=== PATIENT | male | born 1990 | race Caucasian/White ===

== ENCOUNTER 2017-03-01 04:30 | Inpatient (IN) | payer MEDICAID, OTHER ==
[2017-03-01] MEDS ORDERED: Ondansetron 4 MG/2 ML SDV IVPUSH ONE (04:33)
[2017-03-01] MEDS ORDERED: MVI, Adult with Vitamin K 10 ML, Thiamine 100 MG, Folic Acid 1 MG in Sodium Chloride 0.... IV ONE ×4 (04:33)
[2017-03-01] MEDS ORDERED: Sodium Chloride 0.9% 1,000 ML IV ONE (04:33)
[2017-03-01] MEDS ORDERED: Sodium Chloride 0.9% 2.5 ML Syringe FLUSH PRN (04:33)
[2017-03-01] MEDS ORDERED: Sodium Chloride 0.9% 10 ML Syringe FLUSH PRN (04:33)
[2017-03-01] MEDS ORDERED: LORazepam 2 MG/ML SDV IVPUSH ONE (04:33)
--- NOTE | 2017-03-01 04:39 | EDM.PDOC ---
ED HPI GENERAL MEDICAL PROBLEM - General Stated Complaint: DETOX AND ANXIETY Time Seen by Provider: 03/01/17 04:31 - History of Present Illness INITIAL COMMENTS - FREE TEXT/NARRATIVE: HISTORY AND PHYSICAL: History of present illness: The patient is a 26-year-old male with no stated medical history who presents via EMS after he called to get help for detox from alcohol and alcohol abuse. According to the patient he has been drinking heavily over the last 1-2 years and it seems to have gradually escalated since he lost his job about a year ago. He denies drug use although in the past he's smoked marijuana occasionally but no other drug use and he does smoke cigarettes but has not smoked a cigarette in 2 days. He denies any history of psychiatric problems and exhibits no suicidal or homicidal ideation and says that he drinks just to get the euphoria. He stopped drinking about 24 hours ago which was when his last drink occurred. He said since that time he has had sweats shakiness and nausea and feeling like he is going through withdrawal. He called the ambulance because he says he would like help with this problem. He has no headache and denies any recent trauma and has no neck pain chest pain or shortness of breath and no abdominal pain. He told the paramedics that he felt very anxious but he has no stated history of anxiety and takes no prescription or [id number] medications. The patient states he has never done a detox program or pursued any outpatient care plans Review of systems: As per history of present illness and below otherwise all systems reviewed and negative. Past medical history: As per history of present illness and as reviewed below otherwise noncontributory. Surgical history: As per history of present illness and as reviewed below otherwise noncontributory. Social history: No reported history of drug or alcohol abuse. Family history: As per history of present illness and as reviewed below otherwise noncontributory. Physical exam: General: Well-developed well-nourished man who is nontoxic and very tremulous on my evaluation. Vital signs of been reviewed by me. His close have an odor as if they have not been washed recently HEENT: Atraumatic, normocephalic, pupils reactive, sclera are injected, negative for conjunctival pallor or scleral icterus, mucous membranes tacky, throat clear, neck supple, nontender, trachea midline. There is no scalp tenderness or midline step-offs tenderness defects of the cervical spine Lungs: Clear to auscultation, breath sounds equal bilaterally, chest nontender. Heart: S1S2, regular rhythm and tachycardic rate on my evaluation, negative for clicks, rubs, or JVD. Abdomen: Soft, nondistended, nontender. Negative for masses or hepatosplenomegaly. Negative for costovertebral tenderness. Pelvis: Stable nontender. Genitourinary: Deferred. Rectal: Deferred. Extremities: Atraumatic, negative for cords or calf pain. Neurovascular unremarkable. There is no edema and no defects or deficits appreciated Neuro: Awake, alert, oriented. Motor and sensory unremarkable throughout. Exam nonfocal. He is tremulous at rest. He moves all extremities spontaneously without defects or deficits. The patient is very jumpy overall and exhibits some component of anxiety along with the tremulousness but is cooperative with the exam. Back: There are no midline step-offs in his defects of the thoracic or lumbar spine and no soft tissue evidence of any trauma such as abrasions ecchymosis or erythema. Skin: There are no rashes or lesions overly seen then there is no diaphoresis Diagnostics: EKG CBC CMP INR amylase lipase magnesium level alcohol level UA UDS CT scan of the head chest x-ray Therapeutics: IV O2 monitor IV fluids banana bag Ativan Zofran magnesium Tylenol Please note that the initial CIWAA score was 17 and after Ativan and IV fluids it is now 5. 0550: I discussed this case with Dr. Sheikh and he accepts the patient for inpatient admission for medical detox from alcohol. He does not feel the patient needs to be in ICU as his CIWAA score has always been below 18 and is improving. Patient is willing and wants to be admitted. It is noted that the patient did spike a temp to 38.4 and I will add a chest x-ray. Dr. Sheikh does not want lactic acid blood cultures drawn and thinks that the slight temp could be related to his withdrawal. Patient overall is significantly improving since arrival here. Impression: Alcohol withdrawal with history of alcohol abuse Definitive disposition and diagnosis as appropriate pending reevaluation and review of above. - Related Data Allergies Allergy/AdvReac Type Severity Reaction Status Date / Time No Known Allergies Allergy Verified 03/01/17 04:43 Home Meds: Home Meds . [No Known Home Meds] 03/01/17 [History] ED ROS GENERAL - Review of Systems Review Of Systems: ROS reveals no pertinent complaints other than HPI. ED EXAM, GENERAL - Physical Exam Exam: See Below (See dictation) Course - Vital Signs Last Recorded V/S: Last Vital Signs Temp 38.4 C H 03/01/17 05:39 Pulse 85 03/01/17 05:39 Resp 16 03/01/17 05:39 BP 129/78 03/01/17 05:39 Pulse Ox 96 03/01/17 05:39 - Orders/Labs/Meds Orders: Active Orders 24 hr Category Date Time Status Blood Glucose Check, Bedside [RC] ONETIME Care 03/01/17 04:32 Active Cardiac Monitoring [RC] . DIRECTED Care 03/01/17 04:32 Active EKG Documentation Completion [RC] STAT Care 03/01/17 04:32 Active Oxygen Therapy, ED [RC] ASDIRECTED Care 03/01/17 04:32 Active Pulse Oximetry [RC] ASDIRECTED Care 03/01/17 04:32 Active Chest 2V [CR] Stat Exams 03/01/17 05:45 Ordered Head wo Cont [CT] Stat Exams 03/01/17 04:33 Taken Acetaminophen [Tylenol] Med 03/01/17 05:50 Once 650 mg PO NOW ONE MVI, Adult with Vitamin K [Infuvite Adult] 10 ml Med 03/01/17 04:33 Active Thiamine [Vitamin B-1] 100 mg Folic Acid 1 mg Sodium Chloride 0.9% [Normal Saline] 1,000 ml IV ONETIME Magnesium Sulfate/Water [Magnesium Sulfate 2 GM in Med 03/01/17 05:27 Active Water 50 ML] 2 gm Premix Bag 1 bag IV ONETIME Sodium Chloride 0.9% [Saline Flush] Med 03/01/17 04:33 Active 10 ml FLUSH ASDIRECTED PRN Sodium Chloride 0.9% [Saline Flush] Med 03/01/17 04:33 Active 2.5 ml FLUSH ASDIRECTED PRN Saline Lock Insert [OM.PC] Stat Oth 03/01/17 04:31 Ordered Medication Orders Multivitamins/Minerals 10 ml/Thiamine HCl 100 mg/ Folic Acid 1 mg/ Sodium Chloride 1,011.2 mls @ 175 mls/hr IV ONETIME ONE Stop: 03/01/17 10:19 Last Admin: 03/01/17 05:30 Dose: 175 mls/hr Magnesium Sulfate 2 gm/ Premix 50 mls @ 25 mls/hr IV ONETIME ONE Stop: 03/01/17 07:26 Last Admin: 03/01/17 05:35 Dose: 25 mls/hr Sodium Chloride (Saline Flush) 10 ml FLUSH ASDIRECTED PRN PRN Reason: Keep Vein Open Sodium Chloride (Saline Flush) 2.5 ml FLUSH ASDIRECTED PRN PRN Reason: Keep Vein Open Labs: Laboratory Tests 03/01/17 03/01/17 03/01/17 Range/Units 04:45 04:45 04:45 WBC 5.97 (4.0-11.0) K/uL RBC 4.50 (4.50-5.90) M/uL Hgb 14.4 (13.0-17.0) g/dL Hct 40.3 (38.0-50.0) % MCV 89.6 (80.0-98.0) fL MCH 32.0 (27.0-32.0) pg MCHC 35.7 (31.0-37.0) g/dL RDW Std Deviation 50.5 (28.0-62.0) fl RDW Coeff of Luis 15 (11.0-15.0) % Plt Count 109 L (150-400) K/uL MPV 9.50 (7.40-12.00) fL Neut % (Auto) 73.5 (48.0-80.0) % Lymph % (Auto) 14.1 L (16.0-40.0) % [place] % (Auto) 11.9 (0.0-15.0) % Eos % (Auto) 0.2 (0.0-7.0) % Baso % (Auto) 0.3 (0.0-1.5) % Neut # (Auto) 4.4 (1.4-5.7) K/uL Lymph # (Auto) 0.8 (0.6-2.4) K/uL [place] # (Auto) 0.7 (0.0-0.8) K/uL Eos # (Auto) 0.0 (0.0-0.7) K/uL Baso # (Auto) 0.0 (0.0-0.1) K/uL Nucleated RBC % 0.0 /100WBC Nucleated RBCs # 0 K/uL INR 0.99 (0.86-1.11) Sodium 136 (136-146) mmol/L Potassium 3.2 L (3.5-5.1) mmol/L Chloride 102 (98-110) mmol/L Carbon Dioxide 17 L (21-31) mmol/L BUN 13 (6.0-23.0) mg/dL Creatinine 0.9 (0.6-1.5) mg/dL Est Cr Clr Drug Dosing 127.68 mL/min Estimated GFR (MDRD) > 60.0 ml/min Glucose 278 H (60-110) mg/dL Calcium 9.5 (8.8-10.8) mg/dL Magnesium 1.2 L (1.5-2.3) mEq/L Total Bilirubin 1.1 (0.1-1.5) mg/dL AST 109 H (5-40) IU/L ALT 53 (8-54) IU/L Alkaline Phosphatase 67 (40-150) Total Protein 7.3 (6.0-8.0) g/dL Albumin 4.4 (3.5-5.0) g/dL Globulin 2.9 (2.0-3.5) g/dL Albumin/Globulin Ratio 1.5 (1.3-2.8) Amylase 71 (10-90) U/L Lipase 121 H (7-80) U/L Urine Color Urine Appearance Urine pH (5.0-8.0) Ur Specific [place] (1.001-1.035) Urine Protein (NEGATIVE) mg/dL Urine Glucose (UA) (NEGATIVE) mg/dL Urine Ketones (NEGATIVE) mg/dL Urine Occult Blood (NEGATIVE) Urine Nitrite (NEGATIVE) Urine Bilirubin (NEGATIVE) Urine Urobilinogen (<2.0) EU/dL Ur Leukocyte Esterase (NEGATIVE) Urine RBC (0-2/HPF) Urine WBC (0-5/HPF) Ur Epithelial Cells (NONE-FEW) Urine Bacteria (NEGATIVE) Urine Opiates Screen (NEGATIVE) Ur Oxycodone Screen (NEGATIVE) Urine Methadone Screen (NEGATIVE) Ur Barbiturates Screen (NEGATIVE) Ur Phencyclidine Scrn (NEGATIVE) Ur Amphetamine Screen (NEGATIVE) U Methamphetamines Scrn (NEGATIVE) U Benzodiazepines Scrn (NEGATIVE) U Cocaine Metab Screen (NEGATIVE) U Marijuana (THC) Screen (NEGATIVE) Ethyl Alcohol < 10.0 mg/dL 03/01/17 03/01/17 Range/Units 05:00 05:00 WBC (4.0-11.0) K/uL RBC (4.50-5.90) M/uL Hgb (13.0-17.0) g/dL Hct (38.0-50.0) % MCV (80.0-98.0) fL MCH (27.0-32.0) pg MCHC (31.0-37.0) g/dL RDW Std Deviation (28.0-62.0) fl RDW Coeff of Luis (11.0-15.0) % Plt Count (150-400) K/uL MPV (7.40-12.00) fL Neut % (Auto) (48.0-80.0) % Lymph % (Auto) (16.0-40.0) % [place] % (Auto) (0.0-15.0) % Eos % (Auto) (0.0-7.0) % Baso % (Auto) (0.0-1.5) % Neut # (Auto) (1.4-5.7) K/uL Lymph # (Auto) (0.6-2.4) K/uL [place] # (Auto) (0.0-0.8) K/uL Eos # (Auto) (0.0-0.7) K/uL Baso # (Auto) (0.0-0.1) K/uL Nucleated RBC % /100WBC Nucleated RBCs # K/uL INR (0.86-1.11) Sodium (136-146) mmol/L Potassium (3.5-5.1) mmol/L Chloride (98-110) mmol/L Carbon Dioxide (21-31) mmol/L BUN (6.0-23.0) mg/dL Creatinine (0.6-1.5) mg/dL Est Cr Clr Drug Dosing mL/min Estimated GFR (MDRD) ml/min Glucose (60-110) mg/dL Calcium (8.8-10.8) mg/dL Magnesium (1.5-2.3) mEq/L Total Bilirubin (0.1-1.5) mg/dL AST (5-40) IU/L ALT (8-54) IU/L Alkaline Phosphatase (40-150) Total Protein (6.0-8.0) g/dL Albumin (3.5-5.0) g/dL Globulin (2.0-3.5) g/dL Albumin/Globulin Ratio (1.3-2.8) Amylase (10-90) U/L Lipase (7-80) U/L Urine Color YELLOW Urine Appearance CLEAR Urine pH 7.5 (5.0-8.0) Ur Specific [place] 1.015 (1.001-1.035) Urine Protein TRACE (NEGATIVE) mg/dL Urine Glucose (UA) 500 H (NEGATIVE) mg/dL Urine Ketones 40 H (NEGATIVE) mg/dL Urine Occult Blood NEGATIVE (NEGATIVE) Urine Nitrite NEGATIVE (NEGATIVE) Urine Bilirubin NEGATIVE (NEGATIVE) Urine Urobilinogen 0.2 (<2.0) EU/dL Ur Leukocyte Esterase NEGATIVE (NEGATIVE) Urine RBC 0-1 (0-2/HPF) Urine WBC 0-2 (0-5/HPF) Ur Epithelial Cells RARE (NONE-FEW) Urine Bacteria FEW (NEGATIVE) Urine Opiates Screen NEGATIVE (NEGATIVE) Ur Oxycodone Screen NEGATIVE (NEGATIVE) Urine Methadone Screen NEGATIVE (NEGATIVE) Ur Barbiturates Screen NEGATIVE (NEGATIVE) Ur Phencyclidine Scrn NEGATIVE (NEGATIVE) Ur Amphetamine Screen NEGATIVE (NEGATIVE) U Methamphetamines Scrn NEGATIVE (NEGATIVE) U Benzodiazepines Scrn NEGATIVE (NEGATIVE) U Cocaine Metab Screen NEGATIVE (NEGATIVE) U Marijuana (THC) Screen NEGATIVE (NEGATIVE) Ethyl Alcohol mg/dL Meds: Medications Generic Name Dose Route Start Last Admin Trade Name Freq PRN Reason Stop Dose Admin Multivitamins/Minerals 10 ml/ 1,011.2 mls @ 175 mls/hr 03/01/17 04:33 05:30 Thiamine HCl 100 mg/ Folic IV 03/01/17 10:19 175 mls/hr Acid 1 mg/ Sodium Chloride ONETIME ONE Administration Magnesium Sulfate 2 gm/ Premix 50 mls @ 25 mls/hr 03/01/17 05:27 03/01/17 05: 35 IV 03/01/17 07:26 25 mls/hr ONETIME ONE Administration Sodium Chloride 10 ml 03/01/17 04:33 Saline Flush FLUSH ASDIRECTED PRN Keep Vein Open Sodium Chloride 2.5 ml 03/01/17 04:33 Saline Flush FLUSH ASDIRECTED PRN Keep Vein Open Discontinued Medications Generic Name Dose Route Start Last Admin Trade Name Kristine PRN Reason Stop Dose Admin Sodium Chloride 1,000 mls @ 999 mls/hr 03/01/17 04:33 03/01/17 04:46 Normal Saline IV 03/01/17 05:33 999 mls/hr STAT ONE Administration Lorazepam 1 mg 03/01/17 04:33 03/01/17 04:48 Ativan IVPUSH 03/01/17 04:34 1 mg ONETIME ONE Administration Ondansetron HCl 4 mg 03/01/17 04:33 03/01/17 04:46 Zofran IVPUSH 03/01/17 04:34 4 mg ONETIME ONE Administration Departure - Departure Time of Disposition: 05:53 Disposition: Admitted As Inpatient 66 Condition: Good Clinical Impression: Alcohol abuse Alcohol withdrawal syndrome Qualifiers: Complication of substance-induced condition: uncomplicated Qualified Code(s): F10.230 - Alcohol dependence with withdrawal, uncomplicated - Discharge Information - My Orders Last 24 Hours: My Active Orders 03/01/17 04:31 Saline Lock Insert [OM.PC] Stat 03/01/17 04:32 Blood Glucose Check, Bedside [RC] ONETIME Cardiac Monitoring [RC] . DIRECTED EKG Documentation Completion [RC] STAT Oxygen Therapy, ED [RC] ASDIRECTED Pulse Oximetry [RC] ASDIRECTED 03/01/17 04:33 Head wo Cont [CT] Stat MVI, Adult with Vitamin K [Infuvite Adult] 10 ml Thiamine [Vitamin B-1] 100 mg Folic Acid 1 mg Sodium Chloride 0.9% [Normal Saline] 1,000 ml IV ONETIME Sodium Chloride 0.9% [Saline Flush] 10 ml FLUSH ASDIRECTED PRN Sodium Chloride 0.9% [Saline Flush] 2.5 ml FLUSH ASDIRECTED PRN 03/01/17 05:27 Magnesium Sulfate/Water [Magnesium Sulfate 2 GM in Water 50 ML] 2 gm Premix Bag 1 bag IV ONETIME 03/01/17 05:45 Chest 2V [CR] Stat 03/01/17 05:50 Acetaminophen [Tylenol] 650 mg PO NOW ONE - Assessment/Plan Last 24 Hours: My Active Orders 03/01/17 04:31 Saline Lock Insert [OM.PC] Stat 03/01/17 04:32 Blood Glucose Check, Bedside [RC] ONETIME Cardiac Monitoring [RC] . DIRECTED EKG Documentation Completion [RC] STAT Oxygen Therapy, ED [RC] ASDIRECTED Pulse Oximetry [RC] ASDIRECTED 03/01/17 04:33 Head wo Cont [CT] Stat MVI, Adult with Vitamin K [Infuvite Adult] 10 ml Thiamine [Vitamin B-1] 100 mg Folic Acid 1 mg Sodium Chloride 0.9% [Normal Saline] 1,000 ml IV ONETIME Sodium Chloride 0.9% [Saline Flush] 10 ml FLUSH ASDIRECTED PRN Sodium Chloride 0.9% [Saline Flush] 2.5 ml FLUSH ASDIRECTED PRN 03/01/17 05:27 Magnesium Sulfate/Water [Magnesium Sulfate 2 GM in Water 50 ML] 2 gm Premix Bag 1 bag IV ONETIME 03/01/17 05:45 Chest 2V [CR] Stat 03/01/17 05:50 Acetaminophen [Tylenol] 650 mg PO NOW ONE
[2017-03-01 05:10] LABS: CHLORIDE,CL 102 mmol/L (98-110); SODIUM,NA 136 mmol/L (136-146)
[2017-03-01] MEDS ORDERED: Magnesium Sulfate/Water 2 GM in Premix Bag 1 BAG IV ONE (05:27)
[2017-03-01] MEDS ORDERED: Acetaminophen 325 MG Tab PO ONE (05:50)
[2017-03-01] MEDS ORDERED: Potassium Chloride 20 MEQ Tab.ER PO ONE (08:04)
[2017-03-01] MEDS: LORazepam 2 MG/ML SDV IVPUSH PRN ×2 (08:34→22:01)
[2017-03-01] MEDS: Nicotine 21 MG/24 Hr Patch TRDERM SCH (09:04)
--- NOTE | 2017-03-01 11:10 | PCM.HP ---
H&P History of Present Illness - General Date of Service: 03/01/17 Admit Problem/Dx: Admission Diagnosis/Problem Admission Diagnosis/Problem Alcohol withdrawal syndrome Source of Information: Patient History Limitations: Reports: No Limitations - History of Present Illness Initial Comments - Free Text/Narative: 26-year-old male is being admitted for alcohol withdrawal symptoms. Patient was brought in to EMS after calling them and having concerns about going through alcohol withdrawal. Patient notes that he has been drinking heavily over the past 2 years on a daily basis and states that he is "ready to quit". His alcohol use is increased secondary to losing his job last year. He is seeking symptom management for his withdrawal symptoms and also seeking treatment for alcohol abuse. His last drink was 24 hours ago. Patient has never been through detox before. He is never been to an inpatient treatment program. Patient does not take any medications and does not have a past medical history. Patient denies any suicidal or homicidal ideations. He has no psychiatric history. Patient does use tobacco and marijuana. Patient currently complains of headache , nausea, vomiting, diaphoresis and some mildly increased anxiety. ER course: Patient does have a low potassium and magnesium. AST is mildly elevated at 109. ALT and ALP are negative. Lipase is mildly elevated at 121. Head CT was negative. Chest x-ray shows mild pulmonary congestion with no infiltrate. UA shows 500 glucose. Drug screen is negative. Ethanol level is within normal limits. Initial CIWAA score was 17 with a follow-up score 5. Patient did have a temperature of 101F. Lactate and blood cultures were not obtained as this was thought to be secondary to his withdrawal symptoms. - Related Data Allergies/Adverse Reactions: Allergies Allergy/AdvReac Type Severity Reaction Status Date / Time No Known Allergies Allergy Verified 03/01/17 04:43 Home Medications: Home Meds . [No Known Home Meds] 03/01/17 [History] Past Medical History - Past Health History Medical/Surgical History: Denies Medical/Surgical History Cardiovascular History: Reports: Other (See Below) Other Cardiovascular History: frequent palpitations Respiratory History: Reports: SOB Gastrointestinal History: Reports: PUD Psychiatric History: Reports: Depression Social & Family History - Family History Family Medical History: Noncontributory - Tobacco Use Smoking Status *Q: Former Smoker Years of Tobacco use: 20 Packs/Tins Daily: 0.5 Used Tobacco, but Quit: Yes Month Tobacco Last Used: 03/02 Second Hand Smoke Exposure: No - Caffeine Use Caffeine Use: Reports: None - Alcohol Use Days Per Week of Alcohol Use: 7 Number of Drinks Per Day: 20 Total Drinks Per Week: 140 Date of Last Drink: 02/28/17 Time of Last Drink: 04:00 - Recreational Drug Use Recreational Drug Use: No Recreational Drug Type: Reports: Marijuana/Hashish Recreational Drug Last Use: "2 months ago" H&P Review of Systems - Review of Systems: Review Of Systems: See Below General: Reports: Diaphoresis HEENT: Reports: Headaches Pulmonary: Reports: No Symptoms Cardiovascular: Reports: No Symptoms Gastrointestinal: Reports: Abdominal Pain, Nausea, Vomiting Genitourinary: Reports: No Symptoms Musculoskeletal: Reports: No Symptoms Skin: Reports: No Symptoms Psychiatric: Reports: No Symptoms Neurological: Reports: No Symptoms Hematologic/Lymphatic: Reports: No Symptoms Immunologic: Reports: No Symptoms Exam - Exam Exam: See Below - Vital Signs Vital Signs: Last Vital Signs Temp 98.3 F 03/01/17 08:00 Pulse 74 03/01/17 08:00 Resp 20 03/01/17 08:00 BP 118/68 03/01/17 08:00 Pulse Ox 98 03/01/17 08:00 Weight: 159 lb 6.4 oz - Exam Quality Assessment: DVT Prophylaxis General: Alert, Oriented, Cooperative, Mild Distress HEENT: Conjunctiva Clear, Hearing Intact, Mucosa Moist & Louann, Nares Patent, Normal Nasal Septum, Posterior Pharynx Clear Neck: Supple, Trachea Midline, 2 Lungs: Clear to Auscultation, Normal Respiratory Effort Cardiovascular: Regular Rate, Regular Rhythm GI/Abdominal Exam: Normal Bowel Sounds, Soft, No Organomegaly, No Distention, No Abnormal Bruit, No Mass, Tender (Mild epigastric tenderness.) Extremities: Normal Inspection, Normal Range of Motion, Non-Tender, No Pedal Edema, Normal Capillary Refill Peripheral Pulses: 2+: Radial (L), Radial (R), Posterior Tibial (L), Posterior Tibial (R) Skin: Warm, Dry, Intact Neurological: Cranial Nerves Intact, Other (Mild tremor appreciated with outstretched hands.) Neuro Extensive - Mental Status: Alert, Oriented x3, Normal Mood/Affect, Normal Cognition Neuro Extensive - Motor, Sensory, Reflexes: CN II-XII Intact Psychiatric: Alert, Normal Affect, Normal Mood, Withdrawal Symptoms. No: Suicidal Ideation, Homicidal Ideation, Hallucinations - Patient Data Result Diagrams: 03/01/17 04:45 03/01/17 04:45 *Q Meaningful Use (ADM) - VTE *Q VTE Criteria *Q: - Stroke *Q Stroke Criteria *Q: - AMI *Q AMI Criteria *Q: - Problem List (1) Alcohol abuse SNOMED Code(s): 58710346 ICD Code: F10.10 - ALCOHOL ABUSE, UNCOMPLICATED Status: Acute Current Visit: Yes (2) Alcohol withdrawal syndrome SNOMED Code(s): 848575605 ICD Code: F10.239 - ALCOHOL DEPENDENCE WITH WITHDRAWAL, UNSPECIFIED Status : Acute Current Visit: Yes Qualifiers: Complication of substance-induced condition: uncomplicated Qualified Code(s ): F10.230 - Alcohol dependence with withdrawal, uncomplicated Problem List Initiated/Reviewed/Updated: Yes Orders Last 24hrs: Active Orders 24 hr Category Date Time Status CIWAA Assessment [RC] Q4H Care 03/01/17 07:01 Active Regular Diet [DIET] Diet 03/01/17 Lunch Active Abdomen Ltd [US] Routine Exams 03/01/17 08:46 Ordered LIPASE [CHEM] Routine Lab 03/02/17 05:00 Ordered Folic Acid Med 03/02/17 09:00 Active 1 mg PO DAILY LORazepam [Ativan] Med 03/01/17 07:02 Active See Protocol IVPUSH Q4H PRN Nicotine [Habitrol] Med 03/01/17 09:00 Active 21 mg TRDERM DAILY Thiamine [Vitamin B-1] Med 03/02/17 09:00 Active 100 mg PO DAILY Medication Orders Folic Acid (Folic Acid) 1 mg PO DAILY AMADOR Lorazepam (Ativan) 0 mg IVPUSH Q4H PRN; Protocol PRN Reason: Withdrawal Symptoms Last Admin: 03/01/17 08:34 Dose: 1 mg Nicotine (Habitrol) 21 mg TRDERM DAILY AMADOR Last Admin: 03/01/17 09:04 Dose: 21 mg Sodium Chloride (Saline Flush) 10 ml FLUSH ASDIRECTED PRN PRN Reason: Keep Vein Open Sodium Chloride (Saline Flush) 2.5 ml FLUSH ASDIRECTED PRN PRN Reason: Keep Vein Open Thiamine HCl (Vitamin B-1) 100 mg PO DAILY AMADOR Assessment/Plan Comment:: 26-year-old male admitted with alcohol abuse and alcohol withdrawal symptoms #1. Alcohol abuse with withdrawal symptoms: -CIWAA protocol with Ativan as needed for withdrawal symptoms. -Patient started on thiamine and folate. -Magnesium and potassium replaced. -Will give patient resources available to him for outpatient alcohol abuse treatment. #2. Elevated AST: -Is most likely elevated secondary to alcohol abuse. -Right upper quadrant ultrasound is pending. #3. Elevated lipase: -Lipase is mildly elevated at 121. If patient becomes nauseous and has increased vomiting throughout the day, we will make him nothing by mouth. -Most likely chronic pancreatitis. DVT prophylaxis: Lovenox, SCDs. Disposition: 2 to 4 days pending improvement.
[2017-03-01] MEDS ORDERED: Albuterol/Ipratropium 3.0-0.5 MG/3 ML Neb Soln NEB PRN (11:16)
[2017-03-01] MEDS ORDERED: Ondansetron 4 MG/2 ML SDV IVPUSH PRN (11:16)
[2017-03-01] MEDS ORDERED: Acetaminophen 325 MG Tab PO PRN (11:16)
--- NOTE | 2017-03-01 13:10 | CT ---
EXAM DATE: 03/01/17 PATIENT'S AGE: 26 Patient: HENRRY YEE Facility: [place], [place] Site . Site : 1990 Study: CT Head [id number]/16/2017 5:24:34 AM Ordering Physician: Kiet Andrews Final Report: INDICATION: Alcohol withdrawal. TECHNIQUE: CT head without i.v. contrast. COMPARISON: None FINDINGS: CSF spaces: Within normal limits for age. Brain parenchyma: The brain parenchyma is normal in appearance with preservation of the herrera-white differentiation. No sign of mass, hemorrhage, or midline shift seen. Skull base and calvarium: The visualized paranasal sinuses are well aerated. The mastoid air cells are clear. The visualized orbits are grossly unremarkable. No skull fractures are seen. IMPRESSION: 1. No evidence of acute infarction, intracranial hemorrhage, or mass effect seen. Dictated by Kei Damon MD @ 03/01/2017 5:42:11 AM Dictated by: Kei Damon MD @ 03/01/2017 05:42:16 (Electronic Signature) Report Signed by Proxy. [facility]
--- NOTE | 2017-03-01 13:11 | CR ---
EXAM DATE: 03/01/17 PATIENT'S AGE: 26 Patient: HENRRY YEE Facility: [place], [place] Site . Site : 1990 Study: XRay Chest [id number]/16/2017 6:09:22 AM Ordering Physician: Kiet Andrews Final Report: INDICATION: Alcoholic withdrawal. Technique: PA and lateral chest x-ray. Findings: Mild pulmonary venous congestion. Heart size normal. Lungs clear without infiltrate. Chest otherwise negative. Dictated by Michael Collins MD @ Mar 01 2017 6:17AM (Electronic Signature) Report Signed by Proxy. [facility]
[2017-03-01] MEDS: Phosphorus #1 250 MG Tab PO SCH ×3 (13:34→23:46)
--- NOTE | 2017-03-01 16:20 | US ---
EXAMINATION: Right upper quadrant ultrasound HISTORY: Elevated AST COMPARISON: None TECHNIQUE: Grayscale, color Doppler, and spectral Doppler images obtained transabdominally. FINDINGS: The visualized pancreas appears normal. The liver is mildly increased in generalized echote xture with focal fatty sparing near the gallbladder fossa. The gallbladder wall thickness is normal. No pericholecystic fluid or shadowing gallstones. The common bile duct measures 3 mm. The right kidne y measures at least 11.5 cm [id number] without evidence of hydronephrosis. Sonographic Madrid sign is not reported. IMPRESSION: 1. Mild fatty infiltration of the liver.
[2017-03-02 05:12] LABS: CHLORIDE,CL 107 mmol/L (98-110); SODIUM,NA 141 mmol/L (136-146)
[2017-03-02] MEDS: Phosphorus #1 250 MG Tab PO SCH ×4 (05:51→23:00)
[2017-03-02] MEDS: Thiamine 100 MG Tab PO SCH (08:31)
[2017-03-02] MEDS: Nicotine 21 MG/24 Hr Patch TRDERM SCH (08:31)
[2017-03-02] MEDS: Folic Acid 1 MG Tab PO SCH (08:31)
[2017-03-02] MEDS: Enoxaparin 40 MG/0.4 ML Syringe SUBCUT SCH (08:32)
[2017-03-02] MEDS ORDERED: Metoprolol Tartrate 5 MG/5 ML SDV IVPUSH PRN (10:09)
--- NOTE | 2017-03-02 10:49 | PCM.PN ---
- General Info Date of Service: 03/02/17 Admission Dx/Problem (Free Text): Admission Diagnosis/Problem Admission Diagnosis/Problem Alcohol withdrawal syndrome Subjective Update: Patient doing well this morning. He is tolerating oral intake and voiding appropriately. He notes a slight tremor of his hands and his arms are outstretched. He also notes that he continues to have diaphoresis. Has mild abdominal pain but again, is tolerating oral intake. Required 2 mg of Ativan yesterday secondary to elevated CIWAA scores. - Review of Systems General: Reports: No Symptoms HEENT: Reports: No Symptoms Pulmonary: Reports: No Symptoms Cardiovascular: Reports: No Symptoms Gastrointestinal: Reports: Abdominal Pain Genitourinary: Reports: No Symptoms Musculoskeletal: Reports: No Symptoms Skin: Reports: Diaphoresis Neurological: Reports: Tremors (Mild tremor of hands with arms outstretched.) Psychiatric: Reports: No Symptoms - Patient Data Vitals - Most Recent: Last Vital Signs Temp 97.4 F 03/02/17 07:49 Pulse 87 03/02/17 07:49 Resp 20 03/02/17 07:49 BP 118/78 03/02/17 07:49 Pulse Ox 98 03/02/17 07:49 Weight - Most Recent: 159 lb 6.4 oz I&O - Last 24 Hours: Intake & Output 03/01/17 03/02/17 03/02/17 22:59 06:59 14:59 Intake Total 640 1740 Output Total 1400 1600 Balance -760 140 Lab Results Last 24 Hours: Laboratory Results - last 24 hr 03/02/17 03/02/17 03/02/17 Range/Units 04:40 04:40 04:40 WBC 4.96 (4.0-11.0) K/uL RBC 4.49 L (4.50-5.90) M/uL Hgb 14.4 (13.0-17.0) g/dL Hct 41.8 (38.0-50.0) % MCV 93.1 (80.0-98.0) fL MCH 32.1 H (27.0-32.0) pg MCHC 34.4 (31.0-37.0) g/dL RDW Std Deviation 53.9 (28.0-62.0) fl RDW Coeff of Luis 16 H (11.0-15.0) % Plt Count 101 L (150-400) K/uL MPV 10.30 (7.40-12.00) fL Neut % (Auto) 72.4 (48.0-80.0) % Lymph % (Auto) 21.8 (16.0-40.0) % [place] % (Auto) 3.4 (0.0-15.0) % Eos % (Auto) 2.2 (0.0-7.0) % Baso % (Auto) 0.2 (0.0-1.5) % Neut # (Auto) 3.6 (1.4-5.7) K/uL Lymph # (Auto) 1.1 (0.6-2.4) K/uL [place] # (Auto) 0.2 (0.0-0.8) K/uL Eos # (Auto) 0.1 (0.0-0.7) K/uL Baso # (Auto) 0.0 (0.0-0.1) K/uL Nucleated RBC % 0.0 /100WBC Nucleated RBCs # 0 K/uL Sodium 141 (136-146) mmol/L Potassium 4.1 (3.5-5.1) mmol/L Chloride 107 (98-110) mmol/L Carbon Dioxide 25 (21-31) mmol/L BUN 12 (6.0-23.0) mg/dL Creatinine 0.8 (0.6-1.5) mg/dL Est Cr Clr Drug Dosing 143.10 mL/min Estimated GFR (MDRD) > 60.0 ml/min Glucose 81 (60-110) mg/dL Calcium 9.2 (8.8-10.8) mg/dL Phosphorus 4.4 (2.4-4.7) mg/dL Magnesium 2.0 (1.5-2.3) mEq/L Total Bilirubin 1.0 (0.1-1.5) mg/dL AST 1661 H (5-40) IU/L ALT 405 H (8-54) IU/L Alkaline Phosphatase 64 (40-150) Total Protein 7.3 (6.0-8.0) g/dL Albumin 4.6 (3.5-5.0) g/dL Globulin 2.7 (2.0-3.5) g/dL Albumin/Globulin Ratio 1.7 (1.3-2.8) Lipase 157 H (7-80) U/L Med Orders - Current: Current Medications Acetaminophen (Tylenol) 650 mg PO Q4H PRN PRN Reason: Pain (Mild 1-3)/fever Albuterol/Ipratropium (Duoneb 3.0-0.5 Mg/3 Ml) 3 ml NEB Q4HRRT PRN PRN Reason: Shortness Of Breath/wheezing Enoxaparin Sodium (Lovenox) 40 mg SUBCUT DAILY [facility] Last Admin: 03/02/17 08:32 Dose: 40 mg Folic Acid (Folic Acid) 1 mg PO DAILY [facility] Last Admin: 03/02/17 08:31 Dose: 1 mg Lorazepam (Ativan) 0 mg IVPUSH Q4H PRN; Protocol PRN Reason: Withdrawal Symptoms Last Admin: 03/01/17 22:01 Dose: 1 mg Metoprolol Tartrate (Lopressor) 5 mg IVPUSH Q6H PRN PRN Reason: SBP>170 or DBP >110 Nicotine (Habitrol) 21 mg TRDERM DAILY [facility] Last Admin: 03/02/17 08:31 Dose: 21 mg Ondansetron HCl (Zofran) 4 mg IVPUSH Q4H PRN PRN Reason: Nausea Last Admin: 03/01/17 22:06 Dose: 4 mg Sodium Chloride (Saline Flush) 10 ml FLUSH ASDIRECTED PRN PRN Reason: Keep Vein Open Sodium Chloride (Saline Flush) 2.5 ml FLUSH ASDIRECTED PRN PRN Reason: Keep Vein Open Sodium Phosphate (Neutra-Phos) 250 mg PO QID [facility] Last Admin: 03/02/17 05:51 Dose: 250 mg Thiamine HCl (Vitamin B-1) 100 mg PO DAILY [facility] Last Admin: 03/02/17 08:31 Dose: 100 mg Discontinued Medications Acetaminophen (Tylenol) 650 mg PO NOW ONE Stop: 03/01/17 05:51 Last Admin: 03/01/17 06:08 Dose: 650 mg Multivitamins/Minerals 10 ml/Thiamine HCl 100 mg/ Folic Acid 1 mg/ Sodium Chloride 1,011.2 mls @ 175 mls/hr IV ONETIME ONE Stop: 03/01/17 10:19 Last Admin: 03/01/17 05:30 Dose: 175 mls/hr Sodium Chloride (Normal Saline) 1,000 mls @ 999 mls/hr IV STAT ONE Stop: 03/01/17 05:33 Last Admin: 03/01/17 04:46 Dose: 999 mls/hr Magnesium Sulfate 2 gm/ Premix 50 mls @ 25 mls/hr IV ONETIME ONE Stop: 03/01/17 07:26 Last Admin: 03/01/17 05:35 Dose: 25 mls/hr Lorazepam (Ativan) 1 mg IVPUSH ONETIME ONE Stop: 03/01/17 04:34 Last Admin: 03/01/17 04:48 Dose: 1 mg Ondansetron HCl (Zofran) 4 mg IVPUSH ONETIME ONE Stop: 03/01/17 04:34 Last Admin: 03/01/17 04:46 Dose: 4 mg Potassium Chloride (Klor-Con M20) 40 meq PO ONETIME ONE Stop: 03/01/17 08:05 Last Admin: 03/01/17 08:26 Dose: 40 meq - Exam Quality Assessment: DVT Prophylaxis (SCDs, Lovenox.) General: Alert, Oriented, Cooperative, No Acute Distress HEENT: Mucous Membr. Moist/[place] Neck: Supple Lungs: Clear to Auscultation, Normal Respiratory Effort Cardiovascular: Regular Rate, Regular Rhythm GI/Abdominal Exam: Normal Bowel Sounds, Soft, No Organomegaly, No Distention, No Abnormal Bruit, No Mass, Tender (Mild tenderness with palpation in the right upper and left upper quadrants.) Extremities: Normal Inspection, Normal Range of Motion, Non-Tender, No Pedal Edema, Normal Capillary Refill Peripheral Pulses: 2+: Radial (L), Radial (R), Posterior Tibial (L), Posterior Tibial (R) Skin: Warm, Dry, Intact Neurological: No New Focal Deficit Psy/Mental Status: Alert, Normal Affect, Normal Mood Physical Findings Comments:: Patient is diaphoretic. - Problem List & Annotations (1) Alcohol abuse SNOMED Code(s): 99176095 Code(s): F10.10 - ALCOHOL ABUSE, UNCOMPLICATED Status: Acute Current Visit: Yes (2) Alcohol withdrawal syndrome SNOMED Code(s): 460050359 Code(s): F10.239 - ALCOHOL DEPENDENCE WITH WITHDRAWAL, UNSPECIFIED Status: Acute Current Visit: Yes Qualifiers: Complication of substance-induced condition: uncomplicated Qualified Code(s ): F10.230 - Alcohol dependence with withdrawal, uncomplicated - Problem List Review Problem List Initiated/Reviewed/Updated: Yes - My Orders Last 24 Hours: My Active Orders 03/01/17 11:16 Height and Weight [RC] DAILY Intake and Output [RC] Q12H Notify Provider Vital Signs [RC] ASDIRECTED Oxygen Therapy [RC] PRN Pulse Oximetry [RC] PRN Up With Assistance [RC] ASDIRECTED Vital Signs [RC] Q4H Acetaminophen [Tylenol] 650 mg PO Q4H PRN Albuterol/Ipratropium [DuoNeb 3.0-0.5 MG/3 ML] 3 ml NEB Q4HRRT PRN Ondansetron [Zofran] 4 mg IVPUSH Q4H PRN Resuscitation Status Routine 03/01/17 11:17 Sequential Compression Device [OM.PC] Per Unit Routine 03/01/17 11:18 RT Aerosol Therapy [RC] ASDIRECTED 03/01/17 12:00 Phosphorus #1 [Neutra-Phos] 250 mg PO QID 03/02/17 09:00 Enoxaparin [Lovenox] 40 mg SUBCUT DAILY 03/03/17 05:11 CBC WITH AUTO DIFF [HEME] AM COMPREHENSIVE METABOLIC PN,CMP [CHEM] AM MAGNESIUM [CHEM] AM PHOSPHORUS [CHEM] AM - Plan Plan:: 26-year-old male admitted with alcohol abuse and alcohol withdrawal symptoms #1. Alcohol abuse with withdrawal symptoms: -Continue CIWAA protocol with Ativan as needed for withdrawal symptoms. -Continue thiamine and folate. -Magnesium and potassium have returned within normal limits. -Patient has been given information about resources available to him once discharged for help with his alcohol abuse. #2. Elevated AST: -AST has increased to 1600. Was previously 109. ALT is also elevated to 405. Was previously 53. Can consider HIDA scan as outpatient. -Right upper quadrant ultrasound shows fatty infiltration of the liver. #3. Elevated lipase: -Most likely chronic pancreatitis. Lipase is elevated to 157. Was previously 121. -Patient tolerating oral intake without any nausea or vomiting. #4. Hypertension: -Patient's blood pressure this morning is 161/96. As needed metoprolol IV has been started if patient's systolic pressures greater than 170 or diastolic is greater than 110. DVT prophylaxis: Lovenox, SCDs. Disposition: potential discharge tomorrow
[2017-03-03] MEDS: Phosphorus #1 250 MG Tab PO SCH (06:02)
[2017-03-03 06:31] LABS: CHLORIDE,CL 109 mmol/L (98-110); SODIUM,NA 141 mmol/L (136-146)
[2017-03-03] MEDS: Nicotine 21 MG/24 Hr Patch TRDERM SCH (08:00)
[2017-03-03] MEDS: Folic Acid 1 MG Tab PO SCH (08:00)
[2017-03-03] MEDS: Thiamine 100 MG Tab PO SCH (08:00)
[2017-03-03] MEDS: Enoxaparin 40 MG/0.4 ML Syringe SUBCUT SCH (08:00)
--- NOTE | 2017-03-03 09:00 | PCM.PN ---
- Review of Systems Systems Review Comment:: feeling better, does not feel shakey - Patient Data Vitals - Most Recent: Last Vital Signs Temp 36.1 C 03/03/17 07:41 Pulse 92 03/03/17 07:41 Resp 20 03/03/17 07:41 BP 118/85 03/03/17 07:41 Pulse Ox 99 03/03/17 07:41 Weight - Most Recent: 72.439 kg I&O - Last 24 Hours: Intake & Output 03/02/17 03/03/17 03/03/17 22:59 06:59 14:59 Intake Total 1740 950 Output Total 900 400 Balance 840 550 Lab Results Last 24 Hours: Laboratory Results - last 24 hr 03/03/17 03/03/17 Range/Units 05:58 05:58 WBC 4.46 (4.0-11.0) K/uL RBC 4.73 (4.50-5.90) M/uL Hgb 15.1 (13.0-17.0) g/dL Hct 44.2 (38.0-50.0) % MCV 93.4 (80.0-98.0) fL MCH 31.9 (27.0-32.0) pg MCHC 34.2 (31.0-37.0) g/dL RDW Std Deviation 53.3 (28.0-62.0) fl RDW Coeff of Luis 16 H (11.0-15.0) % Plt Count 118 L (150-400) K/uL MPV 10.10 (7.40-12.00) fL Neut % (Auto) 53.6 (48.0-80.0) % Lymph % (Auto) 29.8 (16.0-40.0) % [place] % (Auto) 11.2 (0.0-15.0) % Eos % (Auto) 4.7 (0.0-7.0) % Baso % (Auto) 0.7 (0.0-1.5) % Neut # (Auto) 2.4 (1.4-5.7) K/uL Lymph # (Auto) 1.3 (0.6-2.4) K/uL [place] # (Auto) 0.5 (0.0-0.8) K/uL Eos # (Auto) 0.2 (0.0-0.7) K/uL Baso # (Auto) 0.0 (0.0-0.1) K/uL Nucleated RBC % 0.0 /100WBC Nucleated RBCs # 0 K/uL Sodium 141 (136-146) mmol/L Potassium 3.8 (3.5-5.1) mmol/L Chloride 109 (98-110) mmol/L Carbon Dioxide 21 (21-31) mmol/L BUN 16 (6.0-23.0) mg/dL Creatinine 0.8 (0.6-1.5) mg/dL Est Cr Clr Drug Dosing 143.37 mL/min Estimated GFR (MDRD) > 60.0 ml/min Glucose 85 (60-110) mg/dL Calcium 9.8 (8.8-10.8) mg/dL Phosphorus 5.0 H (2.4-4.7) mg/dL Magnesium 2.1 (1.5-2.3) mEq/L Total Bilirubin 0.9 (0.1-1.5) mg/dL AST 930 H (5-40) IU/L ALT 495 H (8-54) IU/L Alkaline Phosphatase 67 (40-150) Total Protein 8.0 (6.0-8.0) g/dL Albumin 4.7 (3.5-5.0) g/dL Globulin 3.3 (2.0-3.5) g/dL Albumin/Globulin Ratio 1.4 (1.3-2.8) Med Orders - Current: Current Medications Acetaminophen (Tylenol) 650 mg PO Q4H PRN PRN Reason: Pain (Mild 1-3)/fever Albuterol/Ipratropium (Duoneb 3.0-0.5 Mg/3 Ml) 3 ml NEB Q4HRRT PRN PRN Reason: Shortness Of Breath/wheezing Enoxaparin Sodium (Lovenox) 40 mg SUBCUT DAILY [facility] Last Admin: 03/03/17 08:00 Dose: 40 mg Folic Acid (Folic Acid) 1 mg PO DAILY [facility] Last Admin: 03/03/17 08:00 Dose: 1 mg Lorazepam (Ativan) 0 mg IVPUSH Q4H PRN; Protocol PRN Reason: Withdrawal Symptoms Last Admin: 03/01/17 22:01 Dose: 1 mg Metoprolol Tartrate (Lopressor) 5 mg IVPUSH Q6H PRN PRN Reason: SBP>170 or DBP >110 Nicotine (Habitrol) 21 mg TRDERM DAILY [facility] Last Admin: 03/03/17 08:00 Dose: 21 mg Ondansetron HCl (Zofran) 4 mg IVPUSH Q4H PRN PRN Reason: Nausea Last Admin: 03/01/17 22:06 Dose: 4 mg Sodium Chloride (Saline Flush) 10 ml FLUSH ASDIRECTED PRN PRN Reason: Keep Vein Open Sodium Chloride (Saline Flush) 2.5 ml FLUSH ASDIRECTED PRN PRN Reason: Keep Vein Open Thiamine HCl (Vitamin B-1) 100 mg PO DAILY [facility] Last Admin: 03/03/17 08:00 Dose: 100 mg Discontinued Medications Acetaminophen (Tylenol) 650 mg PO NOW ONE Stop: 03/01/17 05:51 Last Admin: 03/01/17 06:08 Dose: 650 mg Multivitamins/Minerals 10 ml/Thiamine HCl 100 mg/ Folic Acid 1 mg/ Sodium Chloride 1,011.2 mls @ 175 mls/hr IV ONETIME ONE Stop: 03/01/17 10:19 Last Admin: 03/01/17 05:30 Dose: 175 mls/hr Sodium Chloride (Normal Saline) 1,000 mls @ 999 mls/hr IV STAT ONE Stop: 03/01/17 05:33 Last Admin: 03/01/17 04:46 Dose: 999 mls/hr Magnesium Sulfate 2 gm/ Premix 50 mls @ 25 mls/hr IV ONETIME ONE Stop: 03/01/17 07:26 Last Admin: 03/01/17 05:35 Dose: 25 mls/hr Lorazepam (Ativan) 1 mg IVPUSH ONETIME ONE Stop: 03/01/17 04:34 Last Admin: 03/01/17 04:48 Dose: 1 mg Ondansetron HCl (Zofran) 4 mg IVPUSH ONETIME ONE Stop: 03/01/17 04:34 Last Admin: 03/01/17 04:46 Dose: 4 mg Potassium Chloride (Klor-Con M20) 40 meq PO ONETIME ONE Stop: 03/01/17 08:05 Last Admin: 03/01/17 08:26 Dose: 40 meq Sodium Phosphate (Neutra-Phos) 250 mg PO QID [facility] Last Admin: 03/03/17 06:02 Dose: 250 mg - Exam General: Alert, Oriented Lungs: Clear to Auscultation, Normal Respiratory Effort Cardiovascular: Regular Rate, Regular Rhythm Extremities: Normal Inspection, No Pedal Edema Skin: Warm, Dry, Intact - Problem List Review Problem List Initiated/Reviewed/Updated: Yes - My Orders Last 24 Hours: My Active Orders 03/03/17 07:17 HEPATITIS PANEL, ACUTE [REF] Routine - Plan Plan:: 26-year-old male admitted with alcohol abuse and alcohol withdrawal symptoms #1. Alcohol abuse with withdrawal: -Continue CIWAA protocol with Ativan as needed for withdrawal symptoms. -Continue thiamine and folate. -Patient has been given information about resources available to him once discharged for help with his alcohol abuse. #2.transaminitis: -suspect alcoholic hepatitis, will continue to monitor liver function tests Anticipate discharge home tomorrow.
[2017-03-03 09:25] LABS: CHLORIDE,CL 109 mmol/L (98-110); SODIUM,NA 142 mmol/L (136-146)
[2017-03-04 06:27] LABS: CHLORIDE,CL 109 mmol/L (98-110); SODIUM,NA 137 mmol/L (136-146)
--- NOTE | 2017-03-04 08:55 | PCM.DCSUM1 ---
Discharge Summary - Discharge Data Discharge Date: 03/04/17 Discharge Disposition: Home, Self-Care 01 Condition: Good - Patient Summary/Data Hospital Course: Admission diagnosis Alcohol withdrawal Alcohol abuse and dependence Hypokalemia Hypomagnesia Hypophosphatemia Discharge diagnosis Same as above plus Alcoholic hepatitis Hospital course: 26-year-old male with pmh of alcohol abuse with heavy drinking over past 2 years who presents to the ED wanting help to quit drinking. He presented with symptoms of headache, nausea, vomiting, nause and diaphoresis. He was treated with Ativan per CIWA protocol, thiamin and folic acid. On admission his laporatory values were significant for bilirubin of 1.1 , INR of 0.99, AST of 109, ALT of 53 potassium of 3.2, phosphorous of 1.1, magnesium of 1.2. His AST did go as high as 1661 and ALT as high a 405 before decreasing to the 301 and 331 respectively on day of discharge. Ultrasound of liver reported mild fatty infiltration of liver. Today on discharge he has not required any Ativan per CINJ protocol for two days. He was instructed on the need to abstain from alcohol. He seems motivated to quit and plans on attending AA. Acute viral hepatitis panel was ordered but pending at the time of discharge. He is to follow up with Dr. Diamond in clinic on March 13. - Discharge Plan Home Medications: Home Meds . [No Known Home Meds] 03/01/17 [History] Referrals: Myron Diamond [Resident] - 03/13/17 9:30 am - Patient Data Vitals - Most Recent: Last Vital Signs Temp 36.6 C 03/04/17 08:00 Pulse 86 03/04/17 08:00 Resp 22 H 03/04/17 08:00 BP 110/70 03/04/17 08:00 Pulse Ox 100 03/04/17 08:00 Weight - Most Recent: 70.76 kg I&O - Last 24 hours: Intake & Output 03/03/17 03/04/17 03/04/17 22:59 06:59 14:59 Intake Total 1520 1536 Output Total 680 500 Balance 840 1036 Lab Results - Last 24 hrs: Laboratory Results - last 24 hr 03/03/17 03/04/17 03/04/17 Range/Units 05:27 05:37 05:37 WBC 5.64 (4.0-11.0) K/uL RBC 4.78 (4.50-5.90) M/uL Hgb 15.4 (13.0-17.0) g/dL Hct 44.5 (38.0-50.0) % MCV 93.1 (80.0-98.0) fL MCH 32.2 H (27.0-32.0) pg MCHC 34.6 (31.0-37.0) g/dL RDW Std Deviation 52.9 (28.0-62.0) fl RDW Coeff of Luis 16 H (11.0-15.0) % Plt Count 141 L (150-400) K/uL MPV 10.80 (7.40-12.00) fL Neut % (Auto) 49.2 (48.0-80.0) % Lymph % (Auto) 32.1 (16.0-40.0) % [place] % (Auto) 14.7 (0.0-15.0) % Eos % (Auto) 3.5 (0.0-7.0) % Baso % (Auto) 0.5 (0.0-1.5) % Neut # (Auto) 2.8 (1.4-5.7) K/uL Lymph # (Auto) 1.8 (0.6-2.4) K/uL [place] # (Auto) 0.8 (0.0-0.8) K/uL Eos # (Auto) 0.2 (0.0-0.7) K/uL Baso # (Auto) 0.0 (0.0-0.1) K/uL Nucleated RBC % 0.0 /100WBC Nucleated RBCs # 0 K/uL Sodium 142 137 (136-146) mmol/L Potassium 3.8 3.8 (3.5-5.1) mmol/L Chloride 109 109 (98-110) mmol/L Carbon Dioxide 19 L 19 L (21-31) mmol/L BUN 16 23 (6.0-23.0) mg/dL Creatinine 0.8 0.8 (0.6-1.5) mg/dL Est Cr Clr Drug Dosing 143.37 TNP mL/min Estimated GFR (MDRD) > 60.0 > 60.0 ml/min Glucose 84 85 (60-110) mg/dL Calcium 9.7 9.8 (8.8-10.8) mg/dL Total Bilirubin 0.9 0.9 (0.1-1.5) mg/dL AST 971 H 301 H (5-40) IU/L ALT 495 H 331 H (8-54) IU/L Alkaline Phosphatase 67 66 (40-150) Total Protein 8.0 7.8 (6.0-8.0) g/dL Albumin 4.7 4.7 (3.5-5.0) g/dL Globulin 3.3 3.1 (2.0-3.5) g/dL Albumin/Globulin Ratio 1.4 1.5 (1.3-2.8) Med Orders - Current: Current Medications Acetaminophen (Tylenol) 650 mg PO Q4H PRN PRN Reason: Pain (Mild 1-3)/fever Albuterol/Ipratropium (Duoneb 3.0-0.5 Mg/3 Ml) 3 ml NEB Q4HRRT PRN PRN Reason: Shortness Of Breath/wheezing Enoxaparin Sodium (Lovenox) 40 mg SUBCUT DAILY [facility] Last Admin: 03/03/17 08:00 Dose: 40 mg Folic Acid (Folic Acid) 1 mg PO DAILY [facility] Last Admin: 03/03/17 08:00 Dose: 1 mg Lorazepam (Ativan) 0 mg IVPUSH Q4H PRN; Protocol PRN Reason: Withdrawal Symptoms Last Admin: 03/01/17 22:01 Dose: 1 mg Metoprolol Tartrate (Lopressor) 5 mg IVPUSH Q6H PRN PRN Reason: SBP>170 or DBP >110 Nicotine (Habitrol) 21 mg TRDERM DAILY [facility] Last Admin: 03/03/17 08:00 Dose: 21 mg Ondansetron HCl (Zofran) 4 mg IVPUSH Q4H PRN PRN Reason: Nausea Last Admin: 03/01/17 22:06 Dose: 4 mg Sodium Chloride (Saline Flush) 10 ml FLUSH ASDIRECTED PRN PRN Reason: Keep Vein Open Sodium Chloride (Saline Flush) 2.5 ml FLUSH ASDIRECTED PRN PRN Reason: Keep Vein Open Thiamine HCl (Vitamin B-1) 100 mg PO DAILY [facility] Last Admin: 03/03/17 08:00 Dose: 100 mg Discontinued Medications Acetaminophen (Tylenol) 650 mg PO NOW ONE Stop: 03/01/17 05:51 Last Admin: 03/01/17 06:08 Dose: 650 mg Multivitamins/Minerals 10 ml/Thiamine HCl 100 mg/ Folic Acid 1 mg/ Sodium Chloride 1,011.2 mls @ 175 mls/hr IV ONETIME ONE Stop: 03/01/17 10:19 Last Admin: 03/01/17 05:30 Dose: 175 mls/hr Sodium Chloride (Normal Saline) 1,000 mls @ 999 mls/hr IV STAT ONE Stop: 03/01/17 05:33 Last Admin: 03/01/17 04:46 Dose: 999 mls/hr Magnesium Sulfate 2 gm/ Premix 50 mls @ 25 mls/hr IV ONETIME ONE Stop: 03/01/17 07:26 Last Admin: 03/01/17 05:35 Dose: 25 mls/hr Lorazepam (Ativan) 1 mg IVPUSH ONETIME ONE Stop: 03/01/17 04:34 Last Admin: 03/01/17 04:48 Dose: 1 mg Ondansetron HCl (Zofran) 4 mg IVPUSH ONETIME ONE Stop: 03/01/17 04:34 Last Admin: 03/01/17 04:46 Dose: 4 mg Potassium Chloride (Klor-Con M20) 40 meq PO ONETIME ONE Stop: 03/01/17 08:05 Last Admin: 03/01/17 08:26 Dose: 40 meq Sodium Phosphate (Neutra-Phos) 250 mg PO QID [facility] Last Admin: 03/03/17 06:02 Dose: 250 mg *Q Meaningful Use (DIS) - VTE *Q VTE Criteria *Q: - Stroke *Q Stroke Criteria *Q: - AMI *Q AMI Criteria *Q:
[2017-03-04] MEDS: Nicotine 21 MG/24 Hr Patch TRDERM SCH ×2 (09:11→09:15)
[2017-03-04] MEDS: Thiamine 100 MG Tab PO SCH (09:11)
[2017-03-04] MEDS: Folic Acid 1 MG Tab PO SCH (09:11)
[2017-03-04] MEDS: Enoxaparin 40 MG/0.4 ML Syringe SUBCUT SCH (09:13)
== END 2017-03-04 11:50 | disposition home or self-care (01) | DRG 897 ==
LOC: MW.ED 04:30 → MW.MS 05:54
PROVIDERS: ADMIT Internal Medicine; ATTEND Internal Medicine
DX: F10.239 Alcohol dependence with withdrawal, unspecified (principal); E87.6 Hypokalemia; E83.42 Hypomagnesemia; E83.39 Other disorders of phosphorus metabolism; K70.10 Alcoholic hepatitis without ascites; F17.200 Nicotine dependence, unspecified, uncomplicated
CPT/HCPCS: 36415; 70450; 70450-26; 71020; 71020-26; 76705; 76705-26; 80053; 80074; 80305; 81001; 82150; 83690; 83735; 84100; 84443; 85025; 85610; 96361; 96365; 96368; 96375; 99284; 99285-25; A9270-GY; G0480; J1650; J2060; J2405; J3411; J3475; J7040